=== PATIENT | female | born 1995 | race Caucasian/White ===

== ENCOUNTER 2021-01-14 08:03 | Emergency (ER) | payer OTHER ==
[~2021-01-14] VITALS: Ht 160 cm; Wt 81.7 kg
[~2021-01-14 08:03] MED LIST: NAPROXEN500 MG PO; ORTHO TRI-CYCL1 EACH PO; SYNTHROID75 MCG PO; VICODIN 5-3001 EACH PO
[2021-01-14] MEDS ORDERED: NORETHINDRONE0.35 MG PO (08:25)
[2021-01-14] MEDS ORDERED: CRUTCH1 EACH MISC (09:42)
[2021-01-14] MEDS ORDERED: HYDROCODON-ACE1 EA10 PO (09:42)
== END 2021-01-14 10:07 | disposition home or self-care (01) ==
LOC: ED 08:03
DX: S90.31XA Contusion of right foot, initial encounter (principal); Z88.1 Allergy status to other antibiotic agents; Z91.040 Latex allergy status; Z79.899 Other long term (current) drug therapy; X58.XXXA Exposure to other specified factors, initial encounter
CPT/HCPCS: 73630; 99283-25